=== PATIENT | female | born 2000 | race Asian ===

== ENCOUNTER 2023-02-10 17:08 | Outpatient (RCR) | payer OTHER, SELFPAY | END 2023-02-10 23:59 | disposition home or self-care (01) | LOC: RPT 17:08 | PROVIDERS: ATTENDING PHYSICIAN Orthopaedic Surgery; FAMILY PHYSICIAN Physician Assistant | DX: M25.561 Pain in right knee (principal); Z73.6 Limitation of activities due to disability | CPT/HCPCS: 97110; 97112 ==

== ENCOUNTER 2023-03-10 15:44 | Outpatient (RCR) | payer OTHER, SELFPAY | END 2023-03-10 23:59 | disposition home or self-care (01) | LOC: RPT 15:44 | PROVIDERS: ATTENDING PHYSICIAN Orthopaedic Surgery; FAMILY PHYSICIAN Physician Assistant | DX: Z47.89 Encounter for other orthopedic aftercare (principal); M25.561 Pain in right knee; Z73.6 Limitation of activities due to disability; M62.81 Muscle weakness (generalized); R26.89 Other abnormalities of gait and mobility | CPT/HCPCS: 97110 ==